=== PATIENT | male | born 1995 ===

== ENCOUNTER 2017-03-01 11:12 | Emergency (ER) | payer OTHER ==
[2017-03-01] MEDS ORDERED: NS 0.9% 1000 ML* 1,000 ML IV ONE (11:48)
[2017-03-01] MEDS ORDERED: HYDROmorphone* 1 MG/ML 1 ML SYR IV SLOW PU ONE ×2 (11:49→13:24)
[2017-03-01] MEDS ORDERED: Ondansetron INJ* 2 MG/ML VIAL IV ONE (11:49)
--- NOTE | 2017-03-01 12:19 | RAD ---
INDICATION: Dislocation COMPARISON: None TECHNIQUE: Routine frontal and Y views were obtained. FINDINGS: There is an anterior dislocation. There is a Hill-Sachs deformity. The AC joint is intact. No additional findings. IMPRESSION: ANTERIOR DISLOCATION
--- NOTE | 2017-03-01 12:43 | ED ---
Jones Corey Alfonso, scribed for Paige Carrasquillo MD on 03/01/17 at 1210 . Upper Extremity Pain - HPI Summary HPI Summary: This patient is a 21 year old M DIANA presenting to [facility] accompanied by football boxing trainer with a chief complaint of L shoulder pain since injury earlier today at about 1030. The CC is described as sharp and throbbing from a football slide. The patient rates the pain 8/10 in severity. Pt with apparent shoulder dislocation. Pt without h/o similar. Pt is RHD. Attempted reduction at football field with pronation and counter traction -- unsuccessful. Pt was given Morphine enroute wiht some relief. Last po 0700 breakfast. Symptoms aggravated by movement. Symptoms not alleviated by 5mg IVP Morphine given by ambulance [employer]. . Denies any PMHx and PSHx. Patients medication reviewed this visit. - History of Current Complaint Chief Complaint: EDExtremityUpper Stated Complaint: SHOULDER INJURY Time Seen by Provider: 03/01/17 11:47 Hx Obtained From: Patient, Other: - Football boxing trainer Mechanism Of Injury: Fall From A Standing Position - "football slide" Onset/Duration: Started Hours Ago - 1030 Timing: Constant Severity Currently: Severe - 8/10 Pain Location: Shoulder - Left Character: Sharp, Throbbing Aggravating Factor(s): Movement Alleviating Factor(s): Nothing Associated Signs & Symptoms: Positive: Negative - Allergies/Home Medications Allergies/Adverse Reactions: Allergies Allergy/AdvReac Type Severity Reaction Status Date / Time No Known Allergies Allergy Verified 03/01/17 11:37 PMH/Surg Hx/FS Hx/Imm Hx Previously Healthy: Yes Sensory History: Denies: Hx Deafness Opthamlomology History: Denies: Hx Legally Blind Infectious Disease History: No Infectious Disease History: Denies: Traveled Outside the [place] in Last 30 Days - Family History Known Family History: Positive: Hypertension, Diabetes - Social History Occupation: Student Alcohol Use: None Substance Use Type: Reports: None Smoking Status (MU): Never Smoked Tobacco Review of Systems Constitutional: Negative Eyes: Negative ENT: Negative Cardiovascular: Negative Respiratory: Negative Gastrointestinal: Negative Genitourinary: Negative Positive: Decreased ROM, Other - L shoulder pain Skin: Negative Neurological: Negative Psychological: Normal All Other Systems Reviewed And Are Negative: Yes Physical Exam Triage Information Reviewed: Yes Vital Signs On Initial Exam: Initial Vitals Temp Pulse Resp BP Pulse Ox 99 F 69 17 162/95 99 03/01/17 11:33 03/01/17 11:33 03/01/17 11:33 03/01/17 11:33 03/01/17 11:33 Vital Signs Reviewed: Yes Appearance: Positive: Well-Nourished, Pain Distress Skin: Positive: Warm, Skin Color Reflects Adequate Perfusion, Dry Head/Face: Positive: Normal Head/Face Inspection ENT: Positive: Hearing grossly normal Respiratory/Lung Sounds: Positive: Clear to Auscultation. Negative: Tracheal Deviation Cardiovascular: Positive: Normal - 2+ radial CBT < 2 sec Abdomen Description: Positive: Nontender Musculoskeletal: Positive: Other - left shoulder with obvious deformity +flex/ ext elbow with pain + flex/ext wrist Neurological: Positive: Normal, Sensory/Motor Intact, Alert, Oriented to Person Place, Time, Other - + gross sensation to hand, arm + deltoid sensation Psychiatric: Positive: Normal AVPU Assessment: Alert - Linch Coma Scale Best Eye Response: 4 - Spontaneous Best Motor Response: 6 - Obeys Commands Best Verbal Response: 5 - Oriented Coma Scale Total: 15 Diagnostics - Vital Signs Vital Signs Temp Pulse Resp BP Pulse Ox 03/01/17 11:35 99 F 69 17 162/95 99 03/01/17 11:33 99 F 69 17 162/95 99 - Laboratory Lab Statement: Any lab studies that have been ordered have been reviewed, and results considered in the medical decision making process. - Radiology Shoulder XR Radiology Interpretation Completed By: Radiologist - ANTERIOR DISLOCATION Re-Evaluation - Re-Evaluation First Eval Change: Improved - Pt reduced by Dr. Monroy without sedation Placed in sling Pt taking po vss feels improved will d/c with ortho follow-up Course/Dx - Course Assessment/Plan: Pt with left shoulder injury at football. likely dislocation. Unable to reduce at field - Diagnoses Provider Diagnoses: Shoulder dislocation - Physician Notifications Discussed Care of Patient With: Reilly Giraldo - Recommend 8 hour fasting - last po 7am Time Discussed With Above Provider: 12:33 Instructed by Provider To: Other - Consulted Dr. Giraldo (anesthesiology) who will see pt in the ED. Consulted Dr. Goldstein (Orthopedic) at 1259 who agrees to see pt in the ED. Discharge - Discharge Plan Condition: Stable Disposition: HOME Patient Education Materials: Shoulder Dislocation (ED) Referrals: Carey Goldstein MD [Medical Doctor] - 3 Days (call for an appointment) Additional Instructions: - Wear sling for comfort and support - Okay to alternate ibuprofen (advil, motrin) and tylenol every 3 hours for pain. Take with food - Okay to apply ice (wrapped in a towel) 20 minutes at a time, 2-3 times a day for pain - Call the orthopedic surgeon to schedule a follow-up appointment this week. Return with questions or concerns The documentation as recorded by the Jones chisholm Alfonso accurately reflects the service I personally performed and the decisions made by , Paige Carrasquillo MD.
[2017-03-01] MEDS ORDERED: Lidocaine 1% INJ* 10 MG/ML 30 ML SDV INJ ONE (13:25)
[2017-03-01] MEDS ORDERED: Lidocaine 1% INJ* 10 MG/ML 30 ML SDV ONE (13:25)
--- NOTE | 2017-03-01 14:20 | RAD ---
INDICATION: Postreduction COMPARISON: None TECHNIQUE: Routine frontal and Y views were obtained. FINDINGS: There is satisfactory reduction. There is a small Hill-Sachs deformity. There are no other focal bony findings. The soft tissues are normal. IMPRESSION: SATISFACTORY REDUCTION.
--- NOTE | 2017-03-01 15:39 | HP ---
HISTORY AND PHYSICAL: DATE OF ADMISSION: 03/01/17 - EMERGENCY DEPT CHIEF COMPLAINT: Left shoulder pain. 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 He described he went in for a football slide and his shoulder dislocated. He is having significant amount of pain. He has not had any previous dislocations before. He ate a large breakfast at 7 o'clock and is unable to get sedation. The ED was very busy and asked me to intervene and try to reduce him. He denies any numbness or tingling. His hop trainer, Gian Fide, is at his bedside. PAST MEDICAL HISTORY: Negative. PAST SURGICAL HISTORY: Negative. MEDICATIONS: None. ALLERGIES: None. FAMILY HISTORY: Negative. SOCIAL HISTORY: He is a sophomore, he is studying physical therapy at . He denies tobacco or alcohol use. On the football team, he plays tackle. REVIEW OF SYSTEMS: A 14-point review of systems is negative except for the above complaint. Otherwise, remainder of systems is negative. PHYSICAL EXAMINATION GENERAL: He is in no acute distress. He is well developed, well nourished. He is alert and oriented x3. He has pleasant mood and normal affect. He is in a lot of pain. VITAL SIGNS: Temperature is 98.4, pulse is 77, respiratory rate 17, oxygen 98% on room air, blood pressure 149/100. HEENT: EOMI. LUNGS: He is respiring comfortably. ABDOMEN: Soft and nontender. EXTREMITIES: He is sensate to light touch about the lateral deltoid, first dorsal webspace, index, long finger, ulnar versus small finger. He is able to flex and extend his elbow, wrist, and hand. He is uncomfortable. He has obvious deformity of the shoulder. His skin is intact. NEUROLOGIC: He is alert and oriented x3. PSYCH: Pleasant mood and normal affect. LABORATORY DATA: X-rays were reviewed and demonstrated an anteroinferior shoulder dislocation with no evidence of fracture. ASSESSMENT AND PLAN: He has a dislocation, this has been out for almost 2.5 hours. At this point, would require general anesthesia to be put to sleep. We will try bedside relocation. I will inject his shoulder first with lidocaine to help anesthetize the joint and distend it and then we will try various reduction maneuvers. Procedure note: The lateral deltoid was prepped and draped in usual sterile fashion, an 18- gauge needle was used to inject 30 cc of 1% lidocaine into the intraarticular joint, after which reduction maneuvers were tried and finally the shoulder was able to be reduced in the prone position with traction. There was an audible and palpable clunk. The patient felt immediate improvement in his symptoms. Post op films were obtained and show reduction of the shoulder with no fracture of the glenoid or greater tuberosity. He does have mild hill sachs deformity. I discussed with the patient and hop trainer about treatment for this injury. This is his first time and he is a contact athlete, therefore I recommended surgical treatment either during the season or post season. He is a high risk athlete. I explained that if he were to consider trying to play he should wait approximately 6-8 weeks when he has full strength and ROM and has allowed time for the soft tissues to heal. Based on evidence in orthopedic literature he is at a 90-100% risk of dislocation. If he were to play football this fall and dislocate again, he should be removed from sport. He verbalized understanding. For now, he should be in the sling for a week, MRI should be obtained early but if delayed he will need an MR arthrogram. He can begin ROM in a week. I will see him back in 2 weeks. Please note, that although the plan and treatment were discussed with the patient, the hop trainer chose to arrange for follow up with a nonoperative sports medicine physician to determine definitive care in spite of my recommendations. The nonoperative physician was not available to discuss care of this patient when contact was attempted. cc: Lincoln Driscoll MD [id number]/[facility] #: [id number] MTDD
== END 2017-03-01 14:47 | disposition home or self-care (01) ==
LOC: ED 11:12
DX: S43.005A Unspecified dislocation of left shoulder joint, initial encounter (principal); X58.XXXA Exposure to other specified factors, initial encounter; Y93.61 Activity, american tackle football; Y92.89 Other specified places as the place of occurrence of the external cause
CPT/HCPCS: 99283; J1170; J2001; J2405

== ENCOUNTER 2017-10-09 02:03 | Emergency (ER) | payer OTHER ==
[2017-10-09] MEDS ORDERED: Morphine INJ* 4 MG/ML 1 ML SYRINGE (NEW SYRINGE VERSION) IV ONE (02:24)
[2017-10-09] MEDS ORDERED: Ondansetron INJ* 2 MG/ML VIAL IV ONE (02:24)
[2017-10-09] MEDS ORDERED: Morphine INJ* 2 MG/ML 1 ML CARPUJECT ONE (02:36)
[2017-10-09] MEDS ORDERED: Lidocain 1% EPI 1:100,000 * 30 ML MDV INJ ONE (02:38)
[2017-10-09] MEDS ORDERED: Lidocaine 2% EPI 1:200000 MPF*10-20 ML VIAL ONE (03:02)
[2017-10-09] MEDS ORDERED: HYDROcodone/ACETAMIN 5-325 MG* 1 TAB PO ONE (04:07)
[2017-10-09] MEDS ORDERED: Ibuprofen TAB* 800 MG PO ONE (04:07)
[2017-10-09] MEDS ORDERED: Proparacaine 0.5% OPHTH.SOL* 15 ML BTL RIGHT EYE ONE (04:23)
[2017-10-09] MEDS ORDERED: Fluorescein Sod TOPICAL 0.6* 0.6 MG TEST OPHTHALMIC ONE ×2 (04:23→04:24)
[2017-10-09] MEDS ORDERED: Tetracaine 0.5% OPTH.SOL 15ML* BTL ONE (04:24)
[2017-10-09] MEDS ORDERED: Tetracaine 0.5% OPTH.SOL 4 ML* 1 DROP BTL RIGHT EYE ONE (04:24)
[2017-10-09 04:50] VITALS: BP 156/61
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
== END 2017-10-09 04:50 | disposition home or self-care (01) ==
LOC: ED 02:03
DX: S09.90XA Unspecified injury of head, initial encounter (principal); S00.83XA Contusion of other part of head, initial encounter; S61.412A Laceration without foreign body of left hand, initial encounter; Y09 Assault by unspecified means; Y92.9 Unspecified place or not applicable
CPT/HCPCS: 96374; 96375; 99284; A9270-GY; J2270; J2405

== ENCOUNTER 2017-10-14 15:02 | Day surgery (SDC) | payer OTHER ==
[~2017-10-14 15:02] MED LIST: Buffered Lidocaine 0.9% SYRIN* 5 ML/SYR SYRINGE INTRADERM ONE; Dexamethasone IV* 4 MG/ML 1 ML (4 MG) IV SLOW PU ONE; Famotidine IV* 10 MG/ML 2 ML (20 mg) IV ONE
[2017-10-14] MEDS ORDERED: Bupivacaine 0.25% SDV* 30 ML ONE (15:17)
[2017-10-14] MEDS ORDERED: Dexamethasone IV* 4 MG/ML 1 ML (4 MG) ONE (15:37)
[2017-10-14] MEDS ORDERED: ceFAZolin 2 GM PREMIX (*) 2 GM/50 ML BAG IVPB ONE (15:37)
[2017-10-14] MEDS ORDERED: Famotidine IV* 10 MG/ML 2 ML (20 mg) ONE (15:37)
[2017-10-14] MEDS ORDERED: ROPIVACAINE 5 MG/ML 30 ML BTL (0.5%) ONE (19:30)
[2017-10-14] MEDS ORDERED: Midazolam* 1 MG/ML 5 ML VIAL (5 MG) ONE (20:01)
[2017-10-14] MEDS ORDERED: fentaNYL* 50 MCG/ML 5 ML VIAL (250 MCG VIAL) ONE (20:01)
[2017-10-14] MEDS ORDERED: Propofol* 10 MG/ML 20 ML BTL IV PUSH ONE (20:57)
[2017-10-14] MEDS ORDERED: Naloxone* 0.4 MG/ML 1 ML VIAL IV PRN (21:29)
[2017-10-14] MEDS ORDERED: HYDROcodone/ACETAMIN 5-325 MG* 1 TAB PO PRN (21:29)
[2017-10-14] MEDS ORDERED: oxyCODONE/Acetamin 5/325 MG* TAB PO PRN (21:29)
[2017-10-14] MEDS ORDERED: fentaNYL* 50 MCG/ML 2 ML VIAL (100 MCG VIAL) IV PRN (21:29)
[2017-10-14] MEDS ORDERED: PROCHLORPERAZINE INJ 5 MG/ML 2 ML VIAL IV PRN (21:29)
[2017-10-14] MEDS ORDERED: Ondansetron INJ* 2 MG/ML VIAL ONE (22:07)
[2017-10-14 23:12] VITALS: BP 143/72
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
--- NOTE | 2017-10-15 14:33 | RAD ---
INDICATION: ORIF LEFT fourth finger. COMPARISON: October 11, 2017 radiographs TECHNIQUE: 10 seconds fluoroscopy. FINDINGS: Spot images document a dorsal cortical plate and multiple fixation screws bridging the proximal diaphyseal fracture of the fourth metacarpal with resulting gross anatomic alignment. IMPRESSION: Procedural fluoroscopy. CPT II Codes: G9500
== END 2017-10-14 23:13 | disposition home or self-care (01) ==
LOC: OREAST 15:02
PROVIDERS: ATTEND Orthopaedic Surgery Hand Surgery
DX: S62.325B Displaced fracture of shaft of fourth metacarpal bone, left hand, initial encounter for open fracture (principal); Y04.2XXA Assault by strike against or bumped into by another person, initial encounter; Y92.89 Other specified places as the place of occurrence of the external cause; J45.909 Unspecified asthma, uncomplicated
CPT/HCPCS: 76000; C1713; C1776; J0690; J1100; J2250; J2405; J2704; J2795; J3010